=== PATIENT | male | born 1965 | race Caucasian/White ===

== ENCOUNTER 2016-11-17 14:10 | Emergency (ER) | payer OTHER ==
[~2016-11-17] VITALS: Ht 152.4 cm; Wt 59.0 kg
[2016-11-17 14:17] VITALS: BP 132/86
== END 2016-11-17 15:05 | disposition home or self-care (01) ==
LOC: ER 14:19
DX: S09.90XA Unspecified injury of head, initial encounter (principal); E11.9 Type 2 diabetes mellitus without complications; W22.8XXA Striking against or struck by other objects, initial encounter; Y93.89 Activity, other specified; Y92.89 Other specified places as the place of occurrence of the external cause; Y99.8 Other external cause status
CPT/HCPCS: 99281; A4606; Z7610; Z7502

== ENCOUNTER 2017-01-15 14:27 | Emergency (ER) | payer OTHER ==
[~2017-01-15] VITALS: Ht 152.4 cm; Wt 56.7 kg
--- NOTE | 2017-01-15 14:50 | NUR ---
PT CAME IN FOR FEELING WEAK X 2 WEEKS. REPORTS INTERMITTENT FEVER A FEW DAYS AGO. PT WANTED TO BE EVALUATED HE CANNOT WAIT FOR HIS PC APPT. AT FOR EVAL. VSS. NAD NOTED. SAFETY AND COMFORT MEASURES PROVIDED. WILL MONITOR.
[2017-01-15] MEDS ORDERED: IV NS 0.9% 1,000 ML ONE (15:05)
[2017-01-15] MEDS ORDERED: IV SET PRIMARY PUMP SET 1 EA INFUS.SET MC ONE (15:05)
--- NOTE | 2017-01-15 15:15 | NUR ---
IV ACCESS STARTED. BLOOD DRAWN FOR LABS, SENT. PT MEDICATED ORDERED.
[2017-01-15] MEDS: IV NS 0.9% 1,000 ML BAG IV ONE (15:16)
[2017-01-15 15:19] LABS: BASOPHILS # (AUTO) 0.1 /CMM (0.0-0.2); BASOPHILS % (AUTO) 1.2 % (0.0-2.0); EOSINOPHILS # (AUTO) 0.2 /CMM (0.0-0.7); EOSINOPHILS % (AUTO) 3.3 % (0.0-6.0); HEMATOCRIT 45 % (39-51); HEMOGLOBIN 15.2 g/dL (13.5-17.5); LYMPHOCYTES # (AUTO) 1.1 /CMM (0.8-4.8); LYMPHOCYTES % (AUTO) 24.5 % (20.0-44.0); MEAN CORPUSCULAR HEMOGLOBIN 30 PG (26.0-33.0); MEAN CORPUSCULAR HGB CONC 34 g/dl (31.0-36.0); MEAN CORPUSCULAR VOLUME 87 fL (80-96); MONOCYTES # (AUTO) 0.5 /CMM (0.1-1.30); NEUTROPHILS # (AUTO) 2.7 /CMM (1.8-8.9); PLATELET COUNT (AUTO) 204 /CMM (150-450); RDW COEFFICIENT OF VARIATION 12.5 (11.5-15.0); RED BLOOD CELL COUNT(AUTO) 5.14 MIL/uL (4.5-6.0); WHITE BLOOD COUNT (AUTO) 4.6 K/uL (4.3-11.0)
--- NOTE | 2017-01-15 15:21 | NUR ---
XRAY DONE AT BS.
[2017-01-15 15:33] LABS: INR 0.9 (0.87-1.13); PROTHROMBIN TIME 9.4 SECS (9.5-12.7)
[2017-01-15 15:35] LABS: ALANINE AMINOTRANSFERASE 15 U/L (12-78); ALBUMIN 3.7 g/dL (3.4-5.0); ALKALINE PHOSPHATASE 86 U/L (46-116); ASPARTATE AMINOTRANSFERASE 15 U/L (15-37); BILIRUBIN,DIRECT 0.1 mg/dL (0.0-0.2); BILIRUBIN,TOTAL 0.4 mg/dL (0.2-1.0); CALCIUM, SERUM 8.6 mg/dL (8.5-10.1); CARBON DIOXIDE 29 mmol/L (21-32); CHLORIDE 107 mmol/L (98-107); CREATININE 0.9 mg/dL (0.6-1.3); GFR 88 mL/min (>60); GLUCOSE 93 mg/dL (74-106); POTASSIUM 3.9 mmol/L (3.5-5.1); SODIUM SERUM 144 mmol/L (136-145); TOTAL PROTEIN, SERUM 7.1 g/dL (6.4-8.2); UREA NITROGEN, BLOOD 16 mg/dL (7-18)
[2017-01-15 15:37] LABS: TROPONIN I < 0.017 ng/mL (0.00-0.056)
--- NOTE | 2017-01-15 17:22 | NUR ---
IV removed. Catheter intact and site benign. Pressure and 4x4 applied to site. No bleeding noted.
--- NOTE | 2017-01-15 17:23 | NUR ---
Patient discharged to home in stable condition. Written and verbal after care instructions given. Patient verbalizes understanding of instruction.
[2017-01-15 17:24] VITALS: BP 125/60
== END 2017-01-15 17:25 | disposition home or self-care (01) ==
LOC: ER 14:30
DX: R53.1 Weakness (principal); R51 Headache; R79.1 Abnormal coagulation profile
CPT/HCPCS: 36415; 70450-TC; 71010-TC; 80048-TC; 80076-TC; 84484-TC; 85025-TC; 85730-TC; A4606; J7030; Z7610

== ENCOUNTER 2017-02-03 11:26 | Emergency (ER) | payer MEDICAID, OTHER ==
[~2017-02-03] VITALS: Ht 170.2 cm; Wt 90.7 kg
[2017-02-03 11:33] VITALS: BP 126/69
--- NOTE | 2017-02-03 11:39 | NUR ---
DR KEARNS AT BEDSIDE FOR EVAL.
== END 2017-02-03 11:44 | disposition home or self-care (01) ==
LOC: ER 11:28
DX: M54.42 Lumbago with sciatica, left side (principal); D64.9 Anemia, unspecified
CPT/HCPCS: A4606; Z7610

== ENCOUNTER 2017-09-16 08:54 | Emergency (ER) | payer OTHER ==
[~2017-09-16] VITALS: Ht 167.6 cm; Wt 68.0 kg
--- NOTE | 2017-09-16 09:03 | NUR ---
PATIENT TO ED DT LOWER BACK PAIN, 6, NON RADIATING X 1 DAY. PATIENT WITH HX OF CHRONIC PAIN. NO IMJURY NOR TRAUMA. PT IS AMBULATORY. IN NO DISTRESS. VSS
[2017-09-16] MEDS ORDERED: DEXAMETHASONE SOD PHOSPHATE 10 MG/ML VIAL IV ONE (09:30)
[2017-09-16] MEDS ORDERED: KETOROLAC TROMETHAMINE INJ 30 MG/ML VIAL IV ONE (09:30)
[2017-09-16] MEDS ORDERED: ONDANSETRON HCL/PF - ER 4 MG/2 ML VIAL IV ONE (09:30)
[2017-09-16] MEDS ORDERED: ONDANSETRON HCL/PF 4 MG/2 ML VIAL ONE (09:31)
[2017-09-16] MEDS ORDERED: KETOROLAC TROMETHAMINE INJ 30 MG/ML VIAL ONE (09:31)
[2017-09-16] MEDS ORDERED: DEXAMETHASONE SOD PHOSPHATE 10 MG/ML VIAL ONE (09:31)
--- NOTE | 2017-09-16 09:54 | NUR ---
PT WAS TAKEN TO CT
[2017-09-16 10:28] LABS: APPEARANCE,URINE CLOUDY (CLEAR); BILIRUBIN,URINE NEGATIVE (NEGATIVE); BLOOD, URINE NEGATIVE Ery/uL (NEGATIVE); COLOR,URINE YELLOW (YELLOW); KETONES,URINE NEGATIVE (NEGATIVE); LEUKOCYTE ESTERASE ,URINE NEGATIVE (NEGATIVE); NITRITE, URINE NEGATIVE (NEGATIVE); PROTEIN,URINE NEGATIVE (NEGATIVE); UGLUCOSE NEGATIVE (NEGATIVE); UROBILINOGEN,URINE 0.2 EU/dL (0.2)
[2017-09-16 10:36] LABS: BACTERIA,URINE Rare /HPF (None Seen); RBC,URINE NONE SEEN /HPF (0-2); SQUAMOUS EPITHELIAL CELL,UR Few /HPF (None Seen); WBC,URINE 0-2 /HPF (0-3)
[2017-09-16 10:37] LABS: URINE AMORPHOUS PHOSPHATES Moderate /HPF (None Seen)
[2017-09-16 13:13] VITALS: BP 112/80
--- NOTE | 2017-09-16 13:14 | NUR ---
Patient discharged to home in stable condition. Written and verbal after care instructions given. Patient verbalizes understanding of instruction.
== END 2017-09-16 13:14 | disposition home or self-care (01) ==
LOC: ER 08:57
DX: M54.5 Low back pain (principal); D64.9 Anemia, unspecified
CPT/HCPCS: 72131; 81001; 96374; 96375; 99285; A4606; J1100; J1885; J2405 ×2; Z7610; 81000-TC

== ENCOUNTER 2018-11-17 11:24 | Emergency (ER) | payer OTHER ==
[~2018-11-17] VITALS: Ht 165.1 cm; Wt 63.5 kg
--- NOTE | 2018-11-17 11:24 | NUR ---
PT BIB SELF C/O COUGH AND CONGESTION FOR "MONTHS", SOB LAST NIGHT, PT IS AAOX4, NOT IN RESPIRATORY DISTRESS, V/S STABLE, KEPT RESTED AND COMFORTABLE.
--- NOTE | 2018-11-17 12:32 | NUR ---
DR MENDOZA AT BEDSIDE FOR EVAL.
--- NOTE | 2018-11-17 13:18 | NUR ---
ENTERTAINMENT MUSICIAN AT BEDSIDE
[2018-11-17] MEDS ORDERED: AZITHROMYCIN 250 MG TABLET ONE (13:54)
[2018-11-17] MEDS ORDERED: AZITHROMYCIN 250 MG TABLET PO ONE (14:00)
--- NOTE | 2018-11-17 14:01 | NUR ---
Patient discharged to home in stable condition. Written and verbal after care instructions given. Patient verbalizes understanding of instruction.
[2018-11-17 14:04] VITALS: BP 122/88
== END 2018-11-17 14:05 | disposition home or self-care (01) ==
LOC: ER 11:26
DX: J40 Bronchitis, not specified as acute or chronic (principal); M54.30 Sciatica, unspecified side
CPT/HCPCS: 71046; 99283; A4606